=== PATIENT | male | born 1960 | race African-American/Black ===

== ENCOUNTER 2024-07-22 15:04 | Inpatient (IN) | payer MEDICARE, MEDICAID ==
[~2024-07-22] VITALS: Ht 172.7 cm; Wt 64.9 kg
[2024-07-22 15:34] LABS: EOSINOPHILS % 1.4 % (0.0-5.0); HEMATOCRIT. 37.3 % (42.0-52.0); HEMOGLOBIN. 12.1 g/dL (14.0-18.0); LYMPHOCYTES % 16.9 % (20.0-50.0); MEAN CORPUSCULAR HEMOGLOBIN 31.9 pg (28.0-32.0); MEAN CORPUSCULAR HGB CONC 32.5 g/dL (31.0-37.0); MEAN CORPUSCULAR VOLUME 98.3 fL (80.0-94.0); MEAN PLATELET VOLUME 8.3 fl (7.4-10.4); NEUTROPHILS % 75.7 % (40.0-76.0); PLATELET 274 x1000/uL (130-400); RED BLOOD CELL COUNT 3.79 mill/uL (4.7-6.1); RED CELL DISTRIBUTION WIDTH 13.7 % (11.6-14.6)
[2024-07-22 15:42] LABS: CHLORIDE 104 mEq/L (98-107); POTASSIUM 4.6 mEq/L (3.5-5.1); SODIUM 139 mEq/L (136-145)
[2024-07-22 15:43] LABS: CARBON DIOXIDE 28 mEq/L (21-32)
[2024-07-22 15:44] LABS: CALCIUM 8.4 mg/dL (8.7-10.4)
[2024-07-22 15:48] LABS: CREATININE 0.8 mg/dL (0.6-1.3); GLUCOSE 262 mg/dL (70-105)
[2024-07-22 15:49] LABS: UREA NITROGEN BLOOD 13 mg/dL (9-23)
[2024-07-22 15:51] LABS: TROPONIN I HIGH SENSITIVITY 19 ng/L (3.0-53)
[2024-07-22] MEDS: FUROSEMIDE 40MG/4ML VIAL IVP ONE (16:27)
[2024-07-22] MEDS: CEFTRIAXONE 1GM/50ML 50 ML IV ONE (16:40)
[2024-07-22] MEDS: AZITHROMYCIN 500MG/250ML 250 ML IV ONE (16:56)
[2024-07-22] MEDS ORDERED: ONDANSETRON HCL 4MG/2ML INJ IV PRN (19:45)
[2024-07-22] MEDS ORDERED: GUAIFENESIN 200MG/10ML SUGAR FREE UDC PO PRN (19:45)
[2024-07-22] MEDS ORDERED: IPRATROPIUM/ALBUTEROL 0.5-3(2.5)MG/3ML NEB HHN PRN (19:45)
[2024-07-22] MEDS ORDERED: CLONIDINE 0.1MG TABLET PO PRN (19:45)
[2024-07-22] MEDS ORDERED: DEXTROSE 50% WATER 50ML SYRINGE IV PRN (19:45)
[2024-07-22] MEDS ORDERED: ACETAMINOPHEN 325MG TABLET PO PRN (19:45)
[2024-07-22] MEDS ORDERED: DOCUSATE SODIUM 100MG CAPSULE PO PRN (19:45)
[2024-07-22] MEDS ORDERED: MAGNESIUM/ALUMINUM HYDROXIDE/SIMETHICONE 30ML UDC PO PRN (19:45)
[2024-07-22 20:18] LABS: IRON 46 ug/dL (65-175)
[2024-07-22 20:19] LABS: TRIGLYCERIDE 42 mg/dL (0-150)
[2024-07-22 20:20] LABS: LDL CHOLESTEROL 90 mg/dL (5-100)
[2024-07-22 20:21] LABS: ALBUMIN 3.3 g/dL (3.2-4.8); CHOLESTEROL 147 mg/dL (<200); HDL CHOLESTEROL 46 mg/dL (>55); PHOSPHORUS 3.8 mg/dL (2.5-4.9); TOTAL IRON BINDING CAPACITY 148 ug/dl (250-425)
[2024-07-22 20:24] LABS: T4 FREE 1.31 ng/dL (0.89-1.76); THYROID STIMULATING HORMONE 3.43 uIU/mL (0.55-4.78)
[2024-07-22 20:33] LABS: FERRITIN 55 ng/mL (22-322)
[2024-07-22 20:34] LABS: VITAMIN B12 SERUM 246 pg/mL (211-911)
[2024-07-22] MEDS: BLOOD SUGAR DIAGNOSTIC STRIP TEST SCH (21:38)
[2024-07-22] MEDS: INSULIN LISPRO 100 UNITS/ML SUBCUT SCH (21:44)
[2024-07-22 23:00] VITALS: BP 133/94; PULSE 97; RESP 18; TEMP 36.6
[2024-07-23 04:00] VITALS: BP 133/99; PULSE 106; RESP 19; TEMP 36.3; O2SAT 98
[2024-07-23] MEDS ORDERED: INSU100I24 SUBCUT (04:11)
[2024-07-23] MEDS ORDERED: SITA25TA3 PO (04:11)
[2024-07-23] MEDS ORDERED: INSU100I45 (04:11)
[2024-07-23] MEDS ORDERED: GABA-290 PO (04:11)
[2024-07-23] MEDS ORDERED: SITA1TAB6 PO (04:11)
[2024-07-23 04:32] LABS: TROPONIN I HIGH SENSITIVITY 18 ng/L (3.0-53)
[2024-07-23 08:00] VITALS: BP 131/94; PULSE 100; RESP 18; TEMP 36.7; O2SAT 97
[2024-07-23] MEDS: NICOTINE 14MG PATCH TD SCH (08:41)
[2024-07-23] MEDS: FUROSEMIDE 40MG/4ML VIAL IVP SCH (08:41)
[2024-07-23] MEDS: ENOXAPARIN 40MG/0.4ML SYR SUBCUT SCH (08:44)
[2024-07-23 10:11] LABS: HEMATOCRIT 38.9 % (42.0-52.0); HEMOGLOBIN 12.8 g/dL (14.0-18.0); MEAN CORPUSCULAR HGB CONC 32.9 g/dL (31.0-37.0); MEAN CORPUSCULAR VOLUME 97.4 fL (80.0-94.0); PLATELET 301 x1000/uL (130-400); RED CELL DISTRIBUTION WIDTH 13.6 % (11.6-14.6); WHITE BLOOD COUNT 9.6 x1000/uL (4.5-11.0)
[2024-07-23 10:20] LABS: CHLORIDE 101 mEq/L (98-107); POTASSIUM 4.3 mEq/L (3.5-5.1); SODIUM 137 mEq/L (136-145)
[2024-07-23 10:21] LABS: CALCIUM 9.1 mg/dL (8.7-10.4); CARBON DIOXIDE 26 mEq/L (21-32)
[2024-07-23 10:24] LABS: TROPONIN I HIGH SENSITIVITY 16 ng/L (3.0-53)
[2024-07-23 10:26] LABS: GLUCOSE 285 mg/dL (70-105)
[2024-07-23 10:27] LABS: UREA NITROGEN BLOOD 16 mg/dL (9-23)
[2024-07-23 10:28] LABS: ALANINE AMINOTRANSFERASE 84 IU/L (10-49); ALBUMIN 3.4 g/dL (3.2-4.8); ASPARTATE AMINOTRANSFERASE 39 IU/L (<34)
[2024-07-23 10:29] LABS: BILIRUBIN TOTAL 0.6 mg/dL (0.1-1.0); PROTEIN TOTAL 6.5 g/dL (6.0-8.3)
[2024-07-23 12:00] VITALS: BP 119/90; PULSE 76; RESP 18; TEMP 36.7; O2SAT 97
[2024-07-23 16:00] VITALS: BP 128/86; PULSE 80; RESP 19; TEMP 36.4; O2SAT 98
[2024-07-23] MEDS: INSULIN LISPRO 100 UNITS/ML SUBCUT SCH (18:45)
[2024-07-23 20:00] VITALS: BP 126/85; PULSE 100; RESP 19; TEMP 36.4; O2SAT 98
[2024-07-23 22:20] LABS: *AMPHETAMINES SCREEN URINE NEGATIVE (NEGATIVE); *BENZODIAZEPINES SCREEN URINE NEGATIVE (NEGATIVE)
[2024-07-23 22:21] LABS: *BARBITURATES SCREEN URINE NEGATIVE (NEGATIVE); *COCAINE SCREEN URINE PRESUMPTIVE POSITIVE (NEGATIVE); CANNABINOID URINE SCREEN NEGATIVE (NEGATIVE); ECSTASY MDMA SCREEN URINE NEGATIVE (NEGATIVE); METHADONE URINE SCREEN NEGATIVE (NEGATIVE); OPIATES URINE SCREEN NEGATIVE (NEGATIVE); PHENCYCLIDINE URINE SCREEN NEGATIVE (NEGATIVE)
[2024-07-23 22:37] LABS: CLARITY URINE CLEAR (CLEAR); COLOR URINE YELLOW (YELLOW); GLUCOSE URINE 1+ (NEGATIVE); KETONES URINE TRACE (NEGATIVE); LEUKOCYTE ESTERASE URINE NEGATIVE (NEGATIVE); NITRITE URINE NEGATIVE (NEGATIVE); OCCULT BLOOD URINE NEGATIVE (NEGATIVE); PH URINE 6.5 (4.5-8.0); PROTEIN URINE TRACE (NEGATIVE); SPECIFIC GRAVITY URINE 1.024 (1.005-1.030); UROBILINOGEN URINE 0.2 E.U./dL (0.2-1.0)
[2024-07-23 23:41] LABS: BACTERIA URINE TRACE; RBC URINE NONE SEEN /hpf (0-2); SQUAMOUS EPITHELIAL CELL URINE RARE /lpf (RARE/1+); WBC URINE 0-2 /hpf (0-2)
[2024-07-24] VITALS (9 sets, daily range): BP systolic 104–125; BP diastolic 65–88; PULSE 93–114; RESP 17–20; TEMP 35.8–37.1; O2SAT 94–99
[2024-07-24 06:56] LABS: HEMATOCRIT 38.1 % (42.0-52.0); HEMOGLOBIN 12.8 g/dL (14.0-18.0); MEAN CORPUSCULAR HEMOGLOBIN 32.3 pg (28.0-32.0); MEAN CORPUSCULAR HGB CONC 33.6 g/dL (31.0-37.0); MEAN CORPUSCULAR VOLUME 96.1 fL (80.0-94.0); PLATELET 289 x1000/uL (130-400); RED BLOOD CELL COUNT 3.97 mill/uL (4.7-6.1); RED CELL DISTRIBUTION WIDTH 13.4 % (11.6-14.6); WHITE BLOOD COUNT 8.4 x1000/uL (4.5-11.0)
[2024-07-24 06:58] LABS: CARBON DIOXIDE 26 mEq/L (21-32); CHLORIDE 100 mEq/L (98-107); POTASSIUM 4.5 mEq/L (3.5-5.1); SODIUM 135 mEq/L (136-145)
[2024-07-24 06:59] LABS: CALCIUM 8.9 mg/dL (8.7-10.4)
[2024-07-24 07:04] LABS: GLUCOSE 321 mg/dL (70-105); UREA NITROGEN BLOOD 19 mg/dL (9-23)
[2024-07-24] MEDS ORDERED: INSULIN GLARGINE 100 UNITS/ML SUBCUT SCH (10:00)
[2024-07-24] MEDS: IPRATROPIUM/ALBUTEROL 0.5-3(2.5)MG/3ML NEB HHN NR ×2 (10:22→12:49)
[2024-07-24] MEDS ORDERED: AZITHROMYCIN 500MG/250ML 250 ML IV SCH (11:00)
[2024-07-24] MEDS ORDERED: ALBU4TAB6 PO (11:35)
[2024-07-24] MEDS ORDERED: AZIT500T8 PO (11:35)
[2024-07-24] MEDS ORDERED: FURO-151 PO (11:35)
[2024-07-24] MEDS ORDERED: INSLIS SUBCUT ×2 (11:35)
[2024-07-24] MEDS: FUROSEMIDE 40MG/4ML VIAL IVP NR (12:47)
[2024-07-24] MEDS: INSULIN GLARGINE 100 UNITS/ML SUBCUT SCH (13:11)
[2024-07-24] MEDS: CEFTRIAXONE 1GM/50ML 50 ML IV SCH (20:14)
[2024-07-24] MEDS: IPRATROPIUM BROMIDE (0.02%) 0.5MG/2.5ML NEB HHN SCH (20:18)
[2024-07-24] MEDS: AZITHROMYCIN 500MG/250ML 250 ML IV SCH (21:21)
[2024-07-25] VITALS (9 sets, daily range): BP systolic 93–109; BP diastolic 61–78; PULSE 84–103; RESP 16–18; TEMP 36.1–37; O2SAT 96–100
[2024-07-25] MEDS: ACETAMINOPHEN 325MG TABLET PO PRN (00:30)
[2024-07-25 07:22] LABS: HEMATOCRIT 37.9 % (42.0-52.0); HEMOGLOBIN 12.8 g/dL (14.0-18.0); MEAN CORPUSCULAR HEMOGLOBIN 32.8 pg (28.0-32.0); MEAN CORPUSCULAR HGB CONC 33.9 g/dL (31.0-37.0); MEAN CORPUSCULAR VOLUME 96.8 fL (80.0-94.0); PLATELET 258 x1000/uL (130-400); RED BLOOD CELL COUNT 3.91 mill/uL (4.7-6.1); RED CELL DISTRIBUTION WIDTH 13.2 % (11.6-14.6)
[2024-07-25 07:41] LABS: CARBON DIOXIDE 27 mEq/L (21-32); CHLORIDE 100 mEq/L (98-107); POTASSIUM 3.6 mEq/L (3.5-5.1); SODIUM 138 mEq/L (136-145)
[2024-07-25 07:42] LABS: CALCIUM 8.4 mg/dL (8.7-10.4)
[2024-07-25 07:46] LABS: CREATININE 0.8 mg/dL (0.6-1.3)
[2024-07-25 07:47] LABS: GLUCOSE 94 mg/dL (70-105); UREA NITROGEN BLOOD 18 mg/dL (9-23)
[2024-07-25] MEDS: FERROUS SULFATE 325MG TABLET PO SCH (09:32)
[2024-07-25] MEDS: LOSARTAN 25 MG TABLET PO SCH (12:00)
[2024-07-25] MEDS: EMPAGLIFLOZIN 10MG TABLET PO SCH (13:03)
[2024-07-25] MEDS: SPIRONOLACTONE 25MG TABLET PO SCH (13:04)
[2024-07-25] MEDS: CEFTRIAXONE 1GM/50ML 50 ML IV SCH (13:05)
[2024-07-25] MEDS: AZITHROMYCIN 500MG/250ML 250 ML IV SCH (15:16)
[2024-07-25] MEDS ORDERED: FERROUS SULFATE 325MG TABLET PO SCH (18:10)
[2024-07-25] MEDS ORDERED: CARVEDILOL 3.125 MG TABLET PO SCH (21:00)
[2024-07-25] MEDS: ATORVASTATIN CALCIUM 40MG TABLET PO SCH (21:52)
[2024-07-26] VITALS: BP 99/56; PULSE 100; RESP 18; TEMP 37.1; O2SAT 95
[2024-07-26 02:04] VITALS: PULSE 97; RESP 16
[2024-07-26 04:00] VITALS: BP 94/68; PULSE 94; RESP 18; TEMP 37.1; O2SAT 100
[2024-07-26 08:00] VITALS: BP 101/91; PULSE 93; RESP 20; TEMP 36; O2SAT 99
[2024-07-26] MEDS ORDERED: SPIR25TA PO (10:36)
[2024-07-26] MEDS ORDERED: EMPA10TA PO (10:36)
[2024-07-26] MEDS ORDERED: INSU100I24 SUBCUT (10:36)
[2024-07-26] MEDS ORDERED: METO-396 PO (10:36)
[2024-07-26] MEDS ORDERED: AZIT500T8 PO (10:36)
[2024-07-26] MEDS ORDERED: LIP40 PO (10:36)
[2024-07-26] MEDS ORDERED: LOSA25TA26 PO (10:36)
[2024-07-26] MEDS ORDERED: FURO-151 PO (10:36)
[2024-07-26] MEDS ORDERED: INSU100I13 SQ (10:36)
[2024-07-26 11:08] VITALS: BP 98/65; PULSE 88; TEMP 97.8; O2SAT 98
[2024-07-26 12:00] VITALS: BP 111/71; PULSE 86; RESP 15; TEMP 36.4; O2SAT 98
[2024-07-27] MEDS ORDERED: AZITHROMYCIN 500 MG TABLET PO SCH (14:00)
== END 2024-07-26 13:37 | disposition home or self-care (01) | DRG 291 ==
LOC: ER 15:04 → EDBEDREQTM 16:29 → EDBEDREQ 16:29 → 7WST 18:35 → EDBEDREQ 18:40 → EDBEDREQTM 18:40
PROVIDERS: ADMIT Hospitalist; ATTEND Hospitalist
DX: I11.0 Hypertensive heart disease with heart failure (principal); I50.21 Acute systolic (congestive) heart failure; J18.9 Pneumonia, unspecified organism; J44.0 Chronic obstructive pulmonary disease with (acute) lower respiratory infection; D84.9 Immunodeficiency, unspecified; D53.9 Nutritional anemia, unspecified; F17.210 Nicotine dependence, cigarettes, uncomplicated; E11.65 Type 2 diabetes mellitus with hyperglycemia; Z79.4 Long term (current) use of insulin; Z79.84 Long term (current) use of oral hypoglycemic drugs; I42.9 Cardiomyopathy, unspecified; I34.0 Nonrheumatic mitral (valve) insufficiency; F14.129 Cocaine abuse with intoxication, unspecified
CPT/HCPCS: 36415; 71045; 80048; 80053; 80061; 80305; 81003; 82040; 82270; 82607; 82728; 82746; 82962; 83036; 83540; 83550; 83605; 83735; 83880; 84100; 84145; 84425; 84439; 84443; 84484; 85025; 85027; 85379; 85651; 93005; 93306; 93970; 94070; 94640; 97165; 99291; J0456; J0696; J1650; J1815; J1940

== ENCOUNTER 2024-09-07 15:45 | Inpatient (IN) | payer MEDICARE, MEDICAID ==
[~2024-09-07] VITALS: Ht 170.2 cm; Wt 54.1 kg
[2024-09-07 09:00] VITALS: BP 124/99; PULSE 82; RESP 15; TEMP 36.5
[~2024-09-07 15:45] MED LIST: AZIT500T8 PO; EMPA10TA PO; FURO-151 PO; GABA-290 PO; INSU100I13 SQ; INSU100I24 SUBCUT; LIP40 PO; LOSA25TA26 PO; METO-396 PO; SPIR25TA PO
[2024-09-07 16:52] LABS: BASOPHILS % 1.2 % (0.0-2.0); EOSINOPHILS % 1.2 % (0.0-5.0); HEMATOCRIT. 38.1 % (42.0-52.0); HEMOGLOBIN. 12.6 g/dL (14.0-18.0); LYMPHOCYTES % 17.4 % (20.0-50.0); MEAN CORPUSCULAR HEMOGLOBIN 32.7 pg (28.0-32.0); MEAN CORPUSCULAR HGB CONC 33.1 g/dL (31.0-37.0); MEAN CORPUSCULAR VOLUME 98.6 fL (80.0-94.0); MEAN PLATELET VOLUME 8.2 fl (7.4-10.4); NEUTROPHILS % 76.2 % (40.0-76.0); PLATELET 203 x1000/uL (130-400); RED BLOOD CELL COUNT 3.87 mill/uL (4.7-6.1); WHITE BLOOD COUNT 9.5 x1000/uL (4.5-11.0)
[2024-09-07 16:59] LABS: CHLORIDE 107 mEq/L (98-107); SODIUM 140 mEq/L (136-145)
[2024-09-07 17:00] LABS: CALCIUM 8.1 mg/dL (8.7-10.4); CARBON DIOXIDE 27 mEq/L (21-32)
[2024-09-07 17:05] LABS: CREATININE 0.9 mg/dL (0.6-1.3); GLUCOSE 232 mg/dL (70-105); UREA NITROGEN BLOOD 17 mg/dL (9-23)
[2024-09-07 17:06] LABS: TROPONIN I HIGH SENSITIVITY 16 ng/L (3.0-53)
[2024-09-07] MEDS: FUROSEMIDE 40MG/4ML VIAL IVP ONE (18:09)
[2024-09-07] MEDS ORDERED: DOCUSATE SODIUM 100MG CAPSULE PO PRN (18:30)
[2024-09-07] MEDS ORDERED: ACETAMINOPHEN 325MG TABLET PO PRN ×2 (18:30)
[2024-09-07] MEDS ORDERED: ONDANSETRON HCL 4MG/2ML INJ IV PRN (18:30)
[2024-09-07] MEDS ORDERED: CLONIDINE 0.1MG TABLET PO PRN (18:30)
[2024-09-07] MEDS ORDERED: MAGNESIUM/ALUMINUM HYDROXIDE/SIMETHICONE 30ML UDC PO PRN (18:30)
[2024-09-07] MEDS ORDERED: GUAIFENESIN 200MG/10ML SUGAR FREE UDC PO PRN (18:30)
[2024-09-07] MEDS ORDERED: ACETAMINOPHEN 650MG SUPP PR PRN (18:30)
[2024-09-07] MEDS ORDERED: DEXTROSE 50% WATER 50ML SYRINGE IV PRN (18:45)
[2024-09-07] MEDS: FUROSEMIDE 40MG/4ML VIAL IVP NR (18:50)
[2024-09-07] MEDS: BLOOD SUGAR DIAGNOSTIC STRIP TEST SCH (21:00)
[2024-09-07] MEDS: ATORVASTATIN CALCIUM 40MG TABLET PO SCH (21:39)
[2024-09-07] MEDS: FAMOTIDINE 20MG TABLET PO SCH (21:40)
[2024-09-07] MEDS: INSULIN LISPRO 100 UNITS/ML SUBCUT SCH (21:41)
[2024-09-07] MEDS: INSULIN GLARGINE 100 UNITS/ML SUBCUT SCH (21:41)
[2024-09-07 23:34] LABS: CLARITY URINE CLEAR (CLEAR); COLOR URINE YELLOW (YELLOW); GLUCOSE URINE 3+ (NEGATIVE); KETONES URINE NEGATIVE (NEGATIVE); LEUKOCYTE ESTERASE URINE NEGATIVE (NEGATIVE); NITRITE URINE NEGATIVE (NEGATIVE); OCCULT BLOOD URINE NEGATIVE (NEGATIVE); PH URINE 6.5 (4.5-8.0); PROTEIN URINE NEGATIVE (NEGATIVE); SPECIFIC GRAVITY URINE 1.011 (1.005-1.030); UROBILINOGEN URINE 0.2 E.U./dL (0.2-1.0)
[2024-09-07 23:51] LABS: *AMPHETAMINES SCREEN URINE NEGATIVE (NEGATIVE); *BARBITURATES SCREEN URINE NEGATIVE (NEGATIVE); *BENZODIAZEPINES SCREEN URINE NEGATIVE (NEGATIVE); *COCAINE SCREEN URINE NEGATIVE (NEGATIVE); METHADONE URINE SCREEN NEGATIVE (NEGATIVE); OPIATES URINE SCREEN NEGATIVE (NEGATIVE); PHENCYCLIDINE URINE SCREEN NEGATIVE (NEGATIVE)
[2024-09-07 23:52] LABS: CANNABINOID URINE SCREEN NEGATIVE (NEGATIVE); ECSTASY MDMA SCREEN URINE NEGATIVE (NEGATIVE)
[2024-09-08] VITALS: BP 127/97; PULSE 88; RESP 12; TEMP 36.7; O2SAT 97
[2024-09-08 00:12] LABS: CREATINE KINASE MB FRACTION 1.8 ng/mL (0.5-3.6)
[2024-09-08 00:28] LABS: BACTERIA URINE NONE SEEN; RBC URINE NONE SEEN /hpf (0-2); SQUAMOUS EPITHELIAL CELL URINE RARE /lpf (RARE/1+); WBC URINE NONE SEEN /hpf (0-2)
[2024-09-08 00:39] LABS: HEPATITIS B SURFACE ANTIGEN NEGATIVE (Negative)
[2024-09-08 01:00] LABS: HEPATITIS C AB NON REACTIVE (Neg) (Negative)
[2024-09-08 04:00] VITALS: BP 125/100; PULSE 79; RESP 14; TEMP 36.6; O2SAT 98
[2024-09-08] MEDS: FUROSEMIDE 40MG/4ML VIAL IVP SCH (06:33)
[2024-09-08 07:14] LABS: CHLORIDE 108 mEq/L (98-107); POTASSIUM 3.9 mEq/L (3.5-5.1); SODIUM 145 mEq/L (136-145)
[2024-09-08 07:15] LABS: CALCIUM 8.6 mg/dL (8.7-10.4); CARBON DIOXIDE 29 mEq/L (21-32)
[2024-09-08 07:19] LABS: CREATINE KINASE MB FRACTION 1.5 ng/mL (0.5-3.6)
[2024-09-08 07:20] LABS: CREATININE 0.9 mg/dL (0.6-1.3); GLUCOSE 87 mg/dL (70-105); TROPONIN I HIGH SENSITIVITY 19 ng/L (3.0-53); UREA NITROGEN BLOOD 18 mg/dL (9-23)
[2024-09-08 07:22] LABS: CREATINE KINASE 77 IU/L (46-171)
[2024-09-08 07:23] LABS: PHOSPHORUS 5.2 mg/dL (2.5-4.9)
[2024-09-08 08:00] VITALS: BP 136/82; PULSE 94; RESP 19; TEMP 36.7; O2SAT 98
[2024-09-08] MEDS: EMPAGLIFLOZIN 10MG TABLET PO SCH (08:42)
[2024-09-08] MEDS: SPIRONOLACTONE 25MG TABLET PO SCH (08:42)
[2024-09-08] MEDS: ENOXAPARIN 30MG/0.3ML SYR SUBCUT SCH (08:43)
[2024-09-08] MEDS: LOSARTAN 25 MG TABLET PO SCH (08:43)
[2024-09-08 12:00] VITALS: BP 120/91; PULSE 83; RESP 10; TEMP 36.9; O2SAT 98
[2024-09-08 13:04] LABS: BASOPHILS % 1.2 % (0.0-2.0); DIFFERENTIAL COMMENT 0; EOSINOPHILS % 1.4 % (0.0-5.0); HEMATOCRIT. 41.3 % (42.0-52.0); HEMOGLOBIN. 13.7 g/dL (14.0-18.0); LYMPHOCYTES % 20.3 % (20.0-50.0); MEAN CORPUSCULAR HEMOGLOBIN 32.6 pg (28.0-32.0); MEAN CORPUSCULAR HGB CONC 33.1 g/dL (31.0-37.0); MEAN CORPUSCULAR VOLUME 98.3 fL (80.0-94.0); MEAN PLATELET VOLUME 9.5 fl (7.4-10.4); MONOCYTES % 6.1 % (2.0-8.0); PLATELET 193 x1000/uL (130-400); RED BLOOD CELL COUNT 4.21 mill/uL (4.7-6.1); RED CELL DISTRIBUTION WIDTH 15.1 % (11.6-14.6); WHITE BLOOD COUNT 10.2 x1000/uL (4.5-11.0)
[2024-09-08 16:00] VITALS: BP 115/91; PULSE 73; RESP 15; TEMP 36.8; O2SAT 99
[2024-09-08 20:00] VITALS: BP 122/85; PULSE 85; RESP 22; TEMP 37.1; O2SAT 95
[2024-09-08] MEDS: SACUBITRIL/VALSARTAN 24MG/26MG TABLET PO SCH (21:15)
[2024-09-09] VITALS: BP 111/85; PULSE 69; RESP 12; TEMP 36.9; O2SAT 96
[2024-09-09 04:00] VITALS: BP 115/81; PULSE 82; RESP 22; TEMP 37.1; O2SAT 95
[2024-09-09 08:00] VITALS: BP 123/88; PULSE 96; RESP 19; TEMP 36.6; O2SAT 97
[2024-09-09] MEDS ORDERED: FURO-151 PO (08:55)
[2024-09-09] MEDS ORDERED: SACU1TAB PO (08:55)
[2024-09-09] MEDS ORDERED: IPRA3AMP9 HHN (09:03)
[2024-09-09 09:41] VITALS: BP 123/88; PULSE 96; TEMP 97.9; O2SAT 97
[2024-09-09 12:00] VITALS: BP 101/87; PULSE 78; RESP 18; TEMP 36.7; O2SAT 94
[2024-09-09] MEDS ORDERED: ALBU18HF2 IH (12:04)
[2024-09-09 13:07] VITALS: PULSE 84; RESP 21; O2SAT 94
[2024-09-09] MEDS: IPRATROPIUM/ALBUTEROL 0.5-3(2.5)MG/3ML NEB HHN PRN (13:07)
== END 2024-09-09 15:17 | disposition home health service (06) | DRG 291 ==
LOC: ER 15:45 → EDBEDREQ 18:00 → 3WST 20:01
PROVIDERS: ADMIT Hospitalist; ATTEND Hospitalist
DX: I11.0 Hypertensive heart disease with heart failure (principal); I50.23 Acute on chronic systolic (congestive) heart failure; E11.65 Type 2 diabetes mellitus with hyperglycemia; D53.9 Nutritional anemia, unspecified; E78.5 Hyperlipidemia, unspecified; I42.9 Cardiomyopathy, unspecified; F17.210 Nicotine dependence, cigarettes, uncomplicated; F19.10 Other psychoactive substance abuse, uncomplicated; Z79.4 Long term (current) use of insulin; Z79.84 Long term (current) use of oral hypoglycemic drugs; Z79.899 Other long term (current) drug therapy; Z86.711 Personal history of pulmonary embolism; Z91.148 Patient's other noncompliance with medication regimen for other reason
CPT/HCPCS: 36415; 71045; 80048; 80305; 81003; 82550; 82553; 82962; 83036; 83735; 83880; 84100; 84484; 85025; 86705; 87340; 93005; 94070; 94640; 94664; 99291; A4606; J1650; J1815; J1940